=== PATIENT | female | born 1960 | race Caucasian/White ===

== ENCOUNTER 2017-09-25 14:27 | Emergency (ER) | payer OTHER ==
[~2017-09-25] VITALS: Ht 170.2 cm; Wt 105.3 kg
[2017-09-25 16:08] LABS: HEMATOCRIT 36.8 % (36.0-46.0); HEMOGLOBIN 12.2 G/DL (11.9-15.5); MCH 29.6 PG (29.0-34.0); MCHC 33.2 G/DL (30.0-36.0); MCV 89.3 FL (83-99); PLATELET COUNT 285 K/uL (156-360); RBC DIS.WIDTH-CV 12.9 % (11.8-14.6); RBC DIS.WIDTH-SD 41.9 % (39-53); RED BLOOD COUNT 4.12 M/uL (3.80-5.20); WHITE BLOOD COUNT 8.6 K/uL (4.1-10.2)
[2017-09-25 16:18] LABS: ALBUMIN 4.2 g/dL (3.2-4.8); CHLORIDE 100 mEq/L (99-109); POTASSIUM 4.5 mEq/L (3.7-5.4); SODIUM 139 mEq/L (136-147)
[2017-09-25 16:20] LABS: GLUCOSE 206 mg/dL (70-99); TOTAL PROTEIN 7.7 g/dL (6.4-8.3)
[2017-09-25 16:22] LABS: TOTAL BILIRUBIN 0.4 mg/dL (0.0-1.0)
[2017-09-25 16:24] LABS: ALKALINE PHOSPHATASE 87 IU/L (3-129); CREATININE 1.1 mg/dL (0.6-1.3); GFR ESTIMATE (CALCULATED) 54 mL/min/
[2017-09-25 16:25] LABS: AST (GOT) 10 IU/L (2-34); UREA NITROGEN (BUN) 26 mg/dL (9-23)
[2017-09-25 16:27] LABS: ALT (GPT) 10 IU/L (3-49)
[2017-09-25] MEDS ORDERED: MOTRIN800 MG PO (17:50)
[2017-09-25] MEDS ORDERED: PREDNISONE20 MG PO (17:50)
[2017-09-25] MEDS ORDERED: PERCOCET 5/31 TABLET PO (17:50)
[2017-09-25 18:02] VITALS: BP 158/95
== END 2017-09-25 18:07 | disposition home or self-care (01) ==
LOC: EME 14:27
PROVIDERS: Nurse Practitioner Family
DX: R60.0 Localized edema (principal); E11.9 Type 2 diabetes mellitus without complications; I10 Essential (primary) hypertension; Z96.653 Presence of artificial knee joint, bilateral
CPT/HCPCS: 73630; 80053; 85027; 93971; 99281; 99284; J7512